=== PATIENT | male | born 1980 | race Caucasian/White ===

== ENCOUNTER 2022-03-08 09:17 | Emergency (ER) | payer SELFPAY ==
[2022-03-08] MEDS ORDERED: Ondansetron 4 MG/2 ML SDV ONE (09:29)
[2022-03-08] MEDS ORDERED: Ondansetron 4 MG/2 ML SDV IVPUSH ONE (09:29)
[2022-03-08] MEDS ORDERED: Sodium Chloride 0.9% 10 ML Syringe FLUSH PRN (09:43)
[2022-03-08] MEDS ORDERED: Sodium Chloride 0.9% 1,000 ML IV ONE ×2 (09:44→11:15)
[2022-03-08 10:20] LABS: ANION GAP 8.6 meq/L (7-15)
[2022-03-08] MEDS ORDERED: Ketorolac 30 MG/ML SDV IVPUSH ONE (10:23)
[2022-03-08 10:39] LABS: RESPIRATORY SYNCYTIAL VIR NAA NEGATIVE (NEGATIVE)
[2022-03-08 10:44] LABS: CORONAVIRUS COVID-19 NAA POSITIVE (NEGATIVE)
[2022-03-08] MEDS: traMADol 50 MG Tab PO ONE ×2 (11:08→11:12)
[2022-03-08] MEDS ORDERED: Acetaminophen 325 MG Tab PO ONE (11:59)
== END 2022-03-08 13:30 | disposition home or self-care (01) ==
LOC: LL.ED 09:17
DX: U07.1 COVID-19 (principal); E03.9 Hypothyroidism, unspecified; Z79.899 Other long term (current) drug therapy
CPT/HCPCS: 0241U; 36415; 71045; 80053; 83605; 83735; 84484; 85025; 85379; 93005; 96361; 96365; 96375; 99284; A9270; J1885; J2405; J3475; J3490; J7030; 93010

== ENCOUNTER 2024-07-16 05:53 | Emergency (ER) | payer BC ==
[2024-07-16] MEDS: Aspirin 81 MG Tab.Chew PO ONE (06:14)
[2024-07-16 06:19] LABS: BASOPHILS ABSOLUTE AUTO 0.03 K/uL (0.00-0.20); BASOPHILS PERCENT AUTO 0.4 % (0.0-2.0); EOSINOPHILS ABSOLUTE AUTO 0.31 K/uL (0.00-0.50); EOSINOPHILS PERCENT AUTO 4.3 % (0.0-5.0); HEMATOCRIT 39.9 % (39.0-49.0); HEMOGLOBIN 13.7 g/dL (13.1-16.8); IMMATURE GRAN ABSOLUTE AUTO 0.03 10^3/uL (0.00-0.50); IMMATURE GRAN PERCENT AUTO 0.4 % (0.0-5.0); LYMPHOCYTES ABSOLUTE AUTO 0.31 K/uL (0.50-3.50); LYMPHOCYTES PERCENT AUTO 4.3 % (10.0-50.0); MEAN CORPUSCULAR HEMOGLOBIN 32.2 pg (28.2-33.3); MEAN CORPUSCULAR HGB CONC 34.3 g/dL (31.7-36.0); MEAN CORPUSCULAR VOLUME 93.7 fL (84.0-98.0); MONOCYTES ABSOLUTE AUTO 0.72 K/uL (0.00-1.00); MONOCYTES PERCENT AUTO 10.1 % (2.0-14.0); NEUTROPHILS ABSOLUTE AUTO 5.76 K/uL (1.40-7.00); NEUTROPHILS PERCENT AUTO 80.5 % (45.0-80.0); PLATELET COUNT,PLT 233 K/uL (150-350); RED BLOOD CELL COUNT 4.26 M/uL (4.33-5.41); RED CELL DISTRIBUTION WIDTH 12.8 % (11.2-14.1); WHITE BLOOD CELL COUNT,WBC 7.2 K/uL (4.0-10.2)
[2024-07-16 06:43] LABS: ALANINE AMINOTRANSFERASE,ALT 20 U/L (12-78); ALKALINE PHOSPHATASE 82 IU/L (46-116); ANION GAP 10.5 meq/L (7-15); ASPARTATE AMNIOTRANSFERASE,AST 11 U/L (15-37); BILIRUBIN TOTAL 0.4 mg/dL (0.2-1.0); BLOOD UREA NITROGEN,BUN 12 mg/dL (7-18); CALCIUM 8.6 mg/dL (8.5-10.1); CARBON DIOXIDE,CO2 25.5 mmol/L (21.0-32.0); CHLORIDE,CL 101 mmol/L (98-107); CREATININE 1.17 mg/dL (0.51-1.17); GLUCOSE RANDOM 100 mg/dL (70-99); POTASSIUM,K 3.9 mmol/L (3.5-5.1); PRO B-TYPE NATRIUR PEPT,BNPPRO 46 pg/mL (0-125); PROTEIN TOTAL,TP 7.2 g/dL (6.4-8.2); SODIUM,NA 137 mmol/L (136-145); TSH ULTRASENSITIVE 1.794 mIU/mL (0.358-3.740)
[2024-07-16 06:44] LABS: ESTIMATED GFR 79 mL/min (>=60)
== END 2024-07-16 07:10 | disposition home or self-care (01) ==
LOC: LL.ED 05:53
DX: U07.1 COVID-19 (principal); E03.9 Hypothyroidism, unspecified; F17.210 Nicotine dependence, cigarettes, uncomplicated; Z79.890 Hormone replacement therapy; Z79.899 Other long term (current) drug therapy
CPT/HCPCS: 36415; 80053; 83880; 84443; 84484; 85025; 85379; 87428-QW; 93005; 99285; A9270-GY

== ENCOUNTER 2024-12-10 07:12 | Inpatient (IN) | payer BC ==
[2024-12-10] MEDS ORDERED: Naloxone 0.4 MG/ML SDV IVPUSH PRN (07:31)
[2024-12-10] MEDS: Sodium Chloride 0.9% 10 ML Syringe FLUSH PRN (07:35)
[2024-12-10] MEDS: HYDROmorphone 0.5 MG/0.5 ML Syringe IVPUSH ONE (07:35)
[2024-12-10] MEDS: Sodium Chloride 0.9% 1,000 ML IV SCH ×2 (07:42→10:25)
[2024-12-10] MEDS: Iopamidol 612 MG/ML 100 ML Bottle IVPUSH ONE (07:45)
[2024-12-10 07:50] LABS: BASOPHILS ABSOLUTE AUTO 0.07 K/uL (0.00-0.20); BASOPHILS PERCENT AUTO 1.1 % (0.0-2.0); EOSINOPHILS PERCENT AUTO 4.7 % (0.0-5.0); HEMATOCRIT 39.9 % (39.0-49.0); HEMOGLOBIN 13.7 g/dL (13.1-16.8); IMMATURE GRAN ABSOLUTE AUTO 0.02 10^3/uL (0.00-0.04); IMMATURE GRAN PERCENT AUTO 0.3 % (0.0-0.4); LYMPHOCYTES ABSOLUTE AUTO 1.54 K/uL (0.50-3.50); MEAN CORPUSCULAR HEMOGLOBIN 32.2 pg (28.2-33.3); MEAN CORPUSCULAR HGB CONC 34.3 g/dL (31.7-36.0); MEAN CORPUSCULAR VOLUME 93.7 fL (84.0-98.0); MONOCYTES ABSOLUTE AUTO 0.75 K/uL (0.00-1.00); MONOCYTES PERCENT AUTO 11.7 % (2.0-14.0); NEUTROPHILS ABSOLUTE AUTO 3.73 K/uL (1.40-7.00); NEUTROPHILS PERCENT AUTO 58.2 % (45.0-80.0); PLATELET COUNT,PLT 270 K/uL (150-350); RED BLOOD CELL COUNT 4.26 M/uL (4.33-5.41); RED CELL DISTRIBUTION WIDTH 12.7 % (11.2-14.1); WHITE BLOOD CELL COUNT,WBC 6.4 K/uL (4.0-10.2)
[2024-12-10 07:55] LABS: BILIRUBIN TOTAL 0.7 mg/dL (0.2-1.0); CALCIUM 9.1 mg/dL (8.5-10.1); CARBON DIOXIDE,CO2 24.1 mmol/L (21.0-32.0); CREATININE 1.68 mg/dL (0.51-1.17); EST CRCL DRUG DOSING (CG) 67.76 mL/min; POTASSIUM,K 3.6 mmol/L (3.5-5.1); PROTEIN TOTAL,TP 7.1 g/dL (6.4-8.2)
[2024-12-10 08:07] LABS: LACTIC ACID 1.5 mmol/L (0.4-2.0)
[2024-12-10 08:26] LABS: ANION GAP 13.5 meq/L (7-15)
[2024-12-10] MEDS: Ondansetron 4 MG/2 ML SDV IVPUSH ONE (08:39)
[2024-12-10] MEDS ORDERED: Acetaminophen 325 MG Tab PO PRN (10:33)
[2024-12-10] MEDS: Tamsulosin 0.4 MG Cap.ER PO ONE ×2 (11:26→19:42)
[2024-12-10] MEDS: Ketorolac 30 MG/ML SDV IVPUSH PRN (11:26)
[2024-12-10] MEDS ORDERED: Ondansetron 4 MG/2 ML SDV IVPUSH PRN (14:00)
[2024-12-10] MEDS ORDERED: HYDROmorphone 0.5 MG/0.5 ML Syringe IVPUSH PRN (15:00)
[2024-12-10] MEDS: Lactated Ringers 1,000 ML IV ONE (19:25)
[2024-12-10] MEDS: Take Home: Ondansetron 4 MG Tab.DIS, 5 Tab Pack PO ONE (19:41)
[2024-12-10] MEDS: Take Home: Ketorolac 10 MG Tab, 4 Tab Pack PO ONE (19:41)
[2024-12-10] MEDS: Take Home: oxyCODONE HCl 5 MG Tab, 5 Tab Pack PO ONE (19:42)
[2024-12-10] MEDS: Take Home: Ondansetron 4 MG Tab.DIS, 5 Tab Pack ONE (19:43)
[2024-12-10] MEDS: Take Home: Tamsulosin HCl 0.4 MG, 6 Cap Pack PO ONE (19:43)
[2024-12-10] MEDS: Take Home: Ketorolac 10 MG Tab, 4 Tab Pack ONE (19:43)
[2024-12-11 07:57] LABS: APPEARANCE,URINE CLEAR; BILIRUBIN,URINE NEGATIVE (NEGATIVE); COLOR,URINE YELLOW; GLUCOSE,URINE NEGATIVE (NEGATIVE); KETONES,URINE NEGATIVE (NEGATIVE); LEUKOCYTE ESTERASE,URINE NEGATIVE (NEGATIVE); NITRITE,URINE NEGATIVE (NEGATIVE); OCCULT BLOOD,URINE LARGE (NEGATIVE); PROTEIN,URINE 30 mg/dL (NEGATIVE); UROBILINOGEN,URINE 0.2 E.U./dL (0.2-1.0)
[2024-12-11] MEDS ORDERED: Tamsulosin 0.4 MG Cap.ER PO SCH ×2 (08:00)
[2024-12-11 08:05] LABS: EPITHELIAL CELLS,URINE FEW /LPF; RBC,URINE 75-100 /HPF
[2024-12-11 08:06] LABS: BACTERIA,URINE NOT SEEN /HPF (NONE TO FEW); MUCUS,URINE OCCASIONAL /LPF (NEGATIVE); OTHER CRYSTALS,URINE MANY /HPF
[2024-12-11 08:10] LABS: AMPHETAMINES SCREEN, URINE POSITIVE (NEGATIVE); BARBITURATE SCREEN,URINE NEGATIVE (NEGATIVE); BENZODIAZEPINES SCREEN,URINE NEGATIVE (NEGATIVE); COCAINE METABOLITES,URINE NEGATIVE (NEGATIVE); EDDP,URINE SCREEN NEGATIVE (NEGATIVE); METHAMPHETAMINES SCREEN, URINE POSITIVE (NEGATIVE); TCA SCREEN,URINE NEGATIVE (NEGATIVE); THC SCREEN,URINE 50 NG/ML NEGATIVE (NEGATIVE)
[2024-12-11 08:18] LABS: OXYCODONE SCREEN,URINE NEGATIVE (NEGATIVE)
[2024-12-11 08:19] LABS: BUPRENORPHINE SCREEN,URINE NEGATIVE (NEGATIVE)
== END 2024-12-10 19:55 | disposition home or self-care (01) | DRG 469 ==
LOC: LL.ED 07:12 → LL.MS 10:00
PROVIDERS: ADMIT Emergency Medicine; ATTEND Emergency Medicine
DX: N17.9 Acute kidney failure, unspecified (principal); E03.9 Hypothyroidism, unspecified; N20.0 Calculus of kidney; Z79.899 Other long term (current) drug therapy
CPT/HCPCS: 36415; 74177; 80053; 80305-QW; 81001; 83605; 83690; 84484; 85025; 96361; 96374; 96375; 99236; 99285-25; A9270-GY; J1885; J2405; J7030; Q0162; Q9967

== ENCOUNTER 2025-02-06 00:02 | Emergency (ER) | payer BC ==
[2025-02-06] MEDS: Amoxicillin/Clavulanate K 875-125 MG Tab PO ONE (00:52)
[2025-02-06] MEDS: Take Home: Amoxicillin/Clavulanate K 875-125 MG Tab, 6 Tab Pack PO ONE (00:59)
== END 2025-02-06 01:00 | disposition home or self-care (01) ==
LOC: LL.ED 00:02
DX: S91.331A Puncture wound without foreign body, right foot, initial encounter (principal); E03.9 Hypothyroidism, unspecified; F17.210 Nicotine dependence, cigarettes, uncomplicated; Z79.890 Hormone replacement therapy; Z79.899 Other long term (current) drug therapy; W26.8XXA Contact with other sharp object(s), not elsewhere classified, initial encounter; Y93.89 Activity, other specified
CPT/HCPCS: 73630; 99283; A9270; J2003